=== PATIENT | female | born 1935 | race Caucasian/White ===

== ENCOUNTER 2018-02-09 07:00 | Inpatient (IN) ==
[2018-01-27 14:03] LABS: Basophils # 0.1 10*3/uL (0.0-0.2); Basophils % 0.5 % (0.0-0.8); Eosinophils # 0.2 10*3/uL (0.0-0.87); Eosinophils % 2.1 % (0.00-10.9); Hematocrit 35.4 VOL% (35.7-47.0); Hemoglobin 11.9 GM/DL (12.0-16.0); Immature Granulocytes % 0.8 %; Immature Granulocytes Absolute 0.09 #; Lymphocytes # 3.2 10*3/uL (1.4-4.0); Mean Corpuscular HGB Conc 33.6 GM/DL (32-36); Mean Corpuscular Hemoglobin 31 PG (27-34); Mean Corpuscular Volume 92.4 FL (87-102); Mean Platelet Volume 9.6 FL (9.6-12.0); Monocytes # 1.1 10*3/uL (0.11-0.8); Monocytes % 9.7 % (1.7-12.7); Neutrophils # 6.6 10*3/uL (1.4-7.4); Neutrophils % 58.9 % (38.7-73.9); Platelet Count 406 T/CUMM (130-400); Red Blood Count 3.83 MC/CUMM (3.8-5.5); White Blood Count 11.2 T/CUMM (4-12)
[2018-01-27 14:23] LABS: Albumin 3.5 G/DL (3.4-5.0); Bilirubin,Total 0.5 MG/DL (0.2-1.0); Calcium 8.8 MG/DL (8.5-10.1)
[~2018-02-09 07:00] MED LIST: ceFAZolin 1,000 MG in SYRINGE 1 EACH IV ONE
[2018-02-09] MEDS ORDERED: ceFAZolin 1,000 MG VIAL ONE (07:59)
[2018-02-09] MEDS ORDERED: HEPARIN 5,000 UNIT/1 ML VIAL ONE ×2 (08:31→13:06)
[2018-02-09] MEDS ORDERED: LIDOCAINE 1% 20 ML VIAL ONE ×2 (08:32→13:07)
[2018-02-09] MEDS ORDERED: VANCOMYCIN 1,000 MG VIAL ONE (09:42)
[2018-02-09] MEDS ORDERED: VANCOMYCIN 500 MG VIAL ONE (09:42)
[2018-02-09] MEDS ORDERED: ONDANSETRON 4 MG/2 ML VIAL IV PRN ×2 (10:40→11:12)
[2018-02-09] MEDS ORDERED: GLUCAGON 1 MG VIAL IM PRN (10:40)
[2018-02-09] MEDS ORDERED: PROMETHAZINE 25 MG/1 ML VIAL IM PRN (10:40)
[2018-02-09] MEDS ORDERED: HYDROmorphone 2 MG/1 ML VIAL IV PRN ×2 (10:40→11:12)
[2018-02-09] MEDS ORDERED: DEXTROSE 50% 25 GM/50 ML VIAL IV PRN (10:40)
[2018-02-09] MEDS ORDERED: NALOXONE 0.4 MG/ML VIAL IV PRN (10:40)
[2018-02-09] MEDS ORDERED: oxyCODONE/ACETAMINOPHEN 5-325 MG TABLET PO PRN ×2 (10:40)
[2018-02-09] MEDS ORDERED: FLUMAZENIL 0.5 MG/5 ML VIAL IV ONE (12:52)
[2018-02-09] MEDS ORDERED: FLUMAZENIL 1 MG/10 ML VIAL IV ONE (12:57)
[2018-02-09] MEDS ORDERED: HEPARIN 5,000 UNIT/1 ML VIAL IV ONE (13:10)
[2018-02-09] MEDS ORDERED: HEPARIN 1,000 UNIT/1 ML VIAL ONE (13:13)
[2018-02-09] MEDS ORDERED: PROPOFOL 200 MG/20 ML VIAL IV ONE (13:44)
[2018-02-09] MEDS ORDERED: MIDAZOLAM 2 MG/2 ML VIAL ONE (13:44)
[2018-02-09] MEDS ORDERED: GLYCOPYRROLATE 0.4 MG/2 ML VIAL ONE (13:45)
[2018-02-09] MEDS ORDERED: PHENYLEPHRINE 1 MG/10 ML SYRINGE IV ONE (13:45)
[2018-02-09] MEDS ORDERED: HEPARIN 10,000 UNIT/10 ML VIAL ONE ×2 (13:45→14:53)
[2018-02-09] MEDS ORDERED: NEOSTIGMINE 10 MG/10 ML VIAL ONE (13:45)
[2018-02-09] MEDS ORDERED: fentaNYL 100 MCG/2 ML VIAL ONE (13:45)
[2018-02-09] MEDS ORDERED: SEVOFLURANE 1 UNIT/15 MINUTE INH ONE ×2 (13:46→14:42)
[2018-02-09] MEDS ORDERED: PROTAMINE SULFATE 50 MG/5 ML VIAL IV ONE (13:46)
[2018-02-09] MEDS ORDERED: ROCURONIUM 100 MG/10 ML VIAL IV ONE (13:46)
[2018-02-09] MEDS ORDERED: ePHEDrine 50 MG/ML AMP ONE (13:53)
[2018-02-09] MEDS ORDERED: DEXAMETHASONE 10 MG/1 ML VIAL ONE (14:42)
[2018-02-09] MEDS ORDERED: ETOMIDATE 40 MG/20 ML VIAL IV ONE (14:42)
[2018-02-09] MEDS ORDERED: METOPROLOL TARTRATE 5 MG/5 ML VIAL IV ONE (14:42)
[2018-02-09] MEDS ORDERED: SUCCINYLCHOLINE 200 MG/10 ML VIAL ONE (14:43)
[2018-02-09 14:46] LABS: Apearance,Urine CLEAR (Clear); Bilirubin,Urine Negative (Negative); Blood, Urine Negative (Negative); Glucose,Urine (UA) Negative (Negative); Ketones,Urine Negative (Negative); Nitrite,Urine Negative (Negative); Protein,Urine Negative; RBC,Urine <1 /HPF (0-4); Urine Color Straw (Yellow); Urine Specific Gravity 1.008 (1.001-1.035); Urine Urobilinogen < 2.0 EU/DL (0.2-1.0); WBC,Urine <1 /HPF (0-6)
[2018-02-09] MEDS ORDERED: INFLUENZA VIRUS VACCINE 0.5 ML SYRINGE IM ONE (15:44)
[2018-02-09 15:49] LABS: ABG Base Excess 1.5 MMOL/L (-2.5-2.5); ABG HCO3 25.8 MMOL/L (20-26); ABG Oxygen Saturation 99.9 % (95-100); ABG PCO2 34.5 MM HG (35-48); ABG PH 7.466 (7.35-7.45); ABG TCO2 22.2 MMOL/L (23-27)
[2018-02-09] MEDS ORDERED: PROPOFOL 1,000 MG/100 ML BOTTLE IV PRN (15:51)
[2018-02-09] MEDS ORDERED: PROPOFOL 1,000 MG/100 ML BOTTLE IV ONE (15:53)
[2018-02-09] MEDS: NITROPRUSSIDE 100 MG in DEXTROSE 5% 250 ML IV SCH (16:02)
[2018-02-09] MEDS: HYDROmorphone 2 MG/1 ML VIAL IV PRN ×2 (16:03→22:44)
[2018-02-09] MEDS: LACTATED RINGERS 1,000 ML IV SCH (16:03)
[2018-02-10] MEDS: LACTATED RINGERS 1,000 ML IV SCH ×2 (01:21→09:28)
[2018-02-10] MEDS: PHENYLEPHRINE DRIP 40 MG/250 ML PREMIX IV SCH ×2 (02:19→11:58)
[2018-02-10 03:39] LABS: ABG Base Excess 1.2 MMOL/L (-2.5-2.5); ABG HCO3 25.5 MMOL/L (20-26); ABG Oxygen Saturation 98.7 % (95-100); ABG PCO2 26.6 MM HG (35-48); ABG PH 7.541 (7.35-7.45); ABG TCO2 20.4 MMOL/L (23-27)
[2018-02-10 04:10] LABS: Hematocrit 28.6 VOL% (35.7-47.0); Hemoglobin 10.2 GM/DL (12.0-16.0); Immature Granulocytes % 0.7 %; Immature Granulocytes Absolute 0.04 #; Lymphocytes # 0.7 10*3/uL (1.4-4.0); Lymphocytes % 13.2 % (21.3-54.2); Mean Corpuscular HGB Conc 35.7 GM/DL (32-36); Mean Corpuscular Hemoglobin 32 PG (27-34); Mean Corpuscular Volume 88.8 FL (87-102); Mean Platelet Volume 10.4 FL (9.6-12.0); Monocytes # 0.1 10*3/uL (0.11-0.8); Monocytes % 1.8 % (1.7-12.7); Neutrophils # 4.6 10*3/uL (1.4-7.4); Neutrophils % 84.3 % (38.7-73.9); Platelet Count 249 T/CUMM (130-400); Red Blood Count 3.22 MC/CUMM (3.8-5.5); Red Cell Distribution Width 12.8 % (9.3-17.3); White Blood Count 5.5 T/CUMM (4-12)
[2018-02-10 04:32] LABS: Potassium 3.5 MMOL/L (3.5-5.1)
[2018-02-10] MEDS ORDERED: NITROPRUSSIDE 50 MG/2 ML VIAL ONE (06:52)
[2018-02-10] MEDS ORDERED: MAGNESIUM SULF RIDER 4 GM in PREMIX 1 EACH IV PRN (08:06)
[2018-02-10] MEDS ORDERED: MAGNESIUM SULF RIDER 2 GM in PREMIX 1 EACH IV PRN (08:06)
[2018-02-10 08:28] LABS: ABG Base Excess 0.8 MMOL/L (-2.5-2.5); ABG HCO3 25.2 MMOL/L (20-26); ABG PCO2 27.7 MM HG (35-48); ABG PH 7.524 (7.35-7.45); ABG TCO2 20.6 MMOL/L (23-27)
[2018-02-10] MEDS ORDERED: CLOPIDOGREL 75 MG TABLET PO SCH (09:00)
[2018-02-10] MEDS ORDERED: LEVOTHYROXINE 75 MCG TABLET PO SCH (09:00)
[2018-02-10] MEDS ORDERED: ASPIRIN EC 81 MG TABLET PO SCH ×2 (09:00)
[2018-02-10 09:02] LABS: ABG Base Excess 0.3 MMOL/L (-2.5-2.5); ABG HCO3 24.7 MMOL/L (20-26); ABG PCO2 29.3 MM HG (35-48); ABG PH 7.498 (7.35-7.45); ABG TCO2 20.5 MMOL/L (23-27)
[2018-02-10 10:19] LABS: ABG HCO3 25.3 MMOL/L (20-26); ABG Oxygen Saturation 96.5 % (95-100); ABG PCO2 31.6 MM HG (35-48); ABG PH 7.487 (7.35-7.45); ABG PO2 79.8 MM HG (80-95); ABG TCO2 21.7 MMOL/L (23-27)
[2018-02-10] MEDS: POTASSIUM CHLORIDE 8 MEQ CAPSULE PO SCH (11:58)
[2018-02-10] MEDS: amLODIPine 10 MG TABLET PO SCH (14:00)
[2018-02-10] MEDS: LISINOPRIL/HCTZ 10-12.5 MG TABLET PO SCH (14:00)
[2018-02-10] MEDS: NITROPRUSSIDE 100 MG in DEXTROSE 5% 250 ML IV SCH (17:37)
[2018-02-11 04:08] LABS: Basophils % 0.1 % (0.0-0.8); Eosinophils % 0.1 % (0.00-10.9); Hematocrit 29.8 VOL% (35.7-47.0); Hemoglobin 10.2 GM/DL (12.0-16.0); Immature Granulocytes % 0.7 %; Immature Granulocytes Absolute 0.09 #; Lymphocytes # 1.7 10*3/uL (1.4-4.0); Lymphocytes % 13.1 % (21.3-54.2); Mean Corpuscular HGB Conc 34.2 GM/DL (32-36); Mean Corpuscular Hemoglobin 31 PG (27-34); Mean Corpuscular Volume 91.4 FL (87-102); Mean Platelet Volume 10.3 FL (9.6-12.0); Monocytes # 0.9 10*3/uL (0.11-0.8); Monocytes % 6.8 % (1.7-12.7); Neutrophils # 10.3 10*3/uL (1.4-7.4); Neutrophils % 79.2 % (38.7-73.9); Platelet Count 244 T/CUMM (130-400); Red Blood Count 3.26 MC/CUMM (3.8-5.5); Red Cell Distribution Width 13.5 % (9.3-17.3)
[2018-02-11 04:12] LABS: ABG Base Excess 3.4 MMOL/L (-2.5-2.5); ABG HCO3 26.1 MMOL/L (20-26); ABG Oxygen Saturation 97.6 % (95-100); ABG PCO2 32.9 MM HG (35-48); ABG PH 7.517 (7.35-7.45); ABG PO2 100.2 MM HG (80-95); ABG TCO2 27.1 MMOL/L (23-27)
[2018-02-11 04:32] LABS: Calcium 8.3 MG/DL (8.5-10.1); Osmolality,Calculated 278.5 MOS/KG (273-304); Potassium 3.4 MMOL/L (3.5-5.1)
[2018-02-11] MEDS: ROSUVASTATIN 20 MG TABLET PO SCH (09:19)
[2018-02-11] MEDS: CLOPIDOGREL 75 MG TABLET PO SCH (09:20)
[2018-02-11] MEDS: LISINOPRIL/HCTZ 10-12.5 MG TABLET PO SCH (09:20)
[2018-02-11] MEDS: amLODIPine 10 MG TABLET PO SCH (09:20)
[2018-02-11] MEDS: POTASSIUM CHLORIDE 8 MEQ CAPSULE PO SCH (09:20)
[2018-02-12] MEDS: POTASSIUM CHLORIDE 8 MEQ CAPSULE PO SCH (08:25)
[2018-02-12] MEDS: CLOPIDOGREL 75 MG TABLET PO SCH (08:25)
[2018-02-12] MEDS: amLODIPine 10 MG TABLET PO SCH (08:25)
[2018-02-12] MEDS: LISINOPRIL/HCTZ 10-12.5 MG TABLET PO SCH (08:26)
[2018-02-12] MEDS: ROSUVASTATIN 20 MG TABLET PO SCH (08:26)
[2018-02-12 12:39] VITALS: BP 133/60
== END 2018-02-12 15:50 | DRG 38 ==
LOC: N.SDSINP 07:00 → N.ICU 10:56 → N.4E 02-11 11:57
PROVIDERS: ADMIT Surgery; ATTEND Surgery